=== PATIENT | female | born 1930 ===

== ENCOUNTER 2019-02-03 16:11 | Observation (INO) | payer MEDICARE, BC ==
[~2019-02-03] VITALS: Ht 157.5 cm; Wt 58.2 kg
--- NOTE | 2019-02-03 16:15 | ERD ---
ER Documentation Chief Complaint Chief Complaint Shortness of breath HPI The patient is a 88-year-old female, presenting to the ER from [facility] for right lower extremity chronic wound care because of acute dyspnea she laid down for the ultrasound of the right lower extremity. According to the nurse from [facility], ultrasound was negative for DVT. He was then transferred to the ER for further evaluation. She has not been sick in the last couple days, denies fever, chills, cough, neck pain, chest pain, abdominal pain, vomiting, dysuria, diarrhea. She does not smoke nor drink Past medical history: Hypertension, scleroderma, CAD Past surgical history: Back, colon surgery due to colon cancer, treated with chemotherapy and radiation therapy ROS All systems reviewed and are negative except as per history of present illness. Medications Home Meds Reported Medications Gabapentin* (Gabapentin*) 300 Mg Capsule, 300 MG PO QHS, #60 CAP 02/03/19 Esomeprazole Mag Trihydrate (Nexium) 20 Mg Capsule.dr, 20 MG PO BID, #30 CAP 02/03/19 Amlodipine Besylate* (Amlodipine Besylate*) 10 Mg Tablet, 10 MG PO DAILY, #30 TAB 02/03/19 Quetiapine Fumarate* (Quetiapine Fumarate*) 25 Mg Tablet, 50 MG PO HS, TAB 02/03/19 Clopidogrel Bisulfate* (Clopidogrel Bisulfate*) 75 Mg Tablet, 75 MG PO DAILY, #30 TAB 02/03/19 Losartan Potassium* (Losartan Potassium*) 50 Mg Tablet, 50 MG PO DAILY, TAB 02/03/19 Allergies Allergies: Coded Allergies: No Known Allergy (Unverified , 02/03/19) Physical Exam Vitals Vital Signs Date Temp Pulse Resp B/P (MAP) Pulse Ox O2 O2 Flow FiO2 Time Delivery Rate 02/03/19 94 20 131/62 100 Nasal 20:41 (85) Cannula 02/03/19 3 17:30 02/03/19 3.0 17:30 02/03/19 3.0 17:20 02/03/19 98.2 133 30 152/76 100 16:30 (101) Physical Exam Const: No acute distress. Head: Atraumatic. Eyes: Normal Conjunctiva. ENT: Normal External Ears, Nose and Mouth. Neck: Full range of motion. No meningismus. Resp: Bibasilar crackle Cardio: Regular tachycardic Abd: Soft, non distended, normal bowel sounds, non tender. Skin: No petechiae or rashes. Back: No midline or flank tenderness. Ext: Right lower extremity is dressed Neur: Awake and alert. No focal deficit Psych: Very anxious Result Diagram: 02/03/19 1630 02/03/19 1630 Results 24 hrs Laboratory Tests Test 02/03/19 16:30 02/03/19 16:32 02/03/19 16:43 02/03/19 17:13 White Blood 7.7 10^3/ul Count Red Blood Count 3.46 10^6/ul Hemoglobin 10.1 g/dl Hematocrit 32.7 % Mean 94.5 fl Corpuscular Volume Mean 29.2 pg Corpuscular Hemoglobin Mean 30.9 g/dl Corpuscular Hemoglobin Conc ent Red Cell 15.2 % Distribution Width Platelet Count 299 10^3/UL Mean Platelet 10.7 fl Volume Immature 0.400 % Granulocytes % Neutrophils % 54.4 % Lymphocytes % 35.3 % Monocytes % 4.7 % Eosinophils % 4.2 % Basophils % 1.0 % Nucleated Red 0.0 /100WBC Blood Cells % Immature 0.030 10^3/ul Granulocytes # Neutrophils # 4.2 10^3/ul Lymphocytes # 2.7 10^3/ul Monocytes # 0.4 10^3/ul Eosinophils # 0.3 10^3/ul Basophils # 0.1 10^3/ul Nucleated Red 0.0 10^3/ul Blood Cells # Prothrombin 12.5 Sec Time Prothrombin 1.0 Time Ratio INR 0.92 International Normalized Rati o Activated 29.1 Sec Partial Thrombo plast Time Sodium Level 143 mmol/L Potassium Level 4.0 mmol/L Chloride Level 106 mmol/L Carbon Dioxide 24 mmol/L Level Anion Gap 13 Blood Urea 21 mg/dl Nitrogen Creatinine 1.24 mg/dl Est Glomerular mL/min Filtrat Rate mL/min Glucose Level 122 mg/dl Calcium Level 8.5 mg/dl Total Bilirubin 0.5 mg/dl Direct 0.00 mg/dl Bilirubin Indirect 0.5 mg/dl Bilirubin Aspartate Amino 17 IU/L Transf (AST/SGO T) Alanine < 6 IU/L Aminotransferas e (ALT/SGPT) Alkaline 85 IU/L Phosphatase Troponin I 0.084 ng/ml B-Type 7530 PG/ML Natriuretic Peptide Total Protein 7.5 g/dl Albumin 4.0 g/dl Globulin 3.50 g/dl Albumin/Globuli 1.14 n Ratio Blood Gas Blood arterial Specimen Source Arterial Blood 02/03/2019 5:10: Date Drawn 37 PM Arterial Blood 7.407 pH (Temp corrected ) Arterial Blood 35.4 mmhg pCO2 (Temp correct) Arterial Blood 105.4 mmHG pO2 (Temp corrected ) Arterial Blood 21.8 mmol/L HCO3 Arterial Blood -2.4 mmol/L Base Excess Arterial Blood 97.7 mmHG Oxygen Saturati on Estuardo Test ACCEPTAB Arterial Blood Right Radial Gas Puncture Site Arterial 0.3 % Blood Carboxyhe moglobin Arterial Blood 0.2 % Methemoglobin Blood Gas A-a 66.9 mmHg O2 Differential Oxyhemoglobin 97.2 % Percent Blood Gas 37.0 C Temperature Blood Gas NASAL CANNULA Modality FiO2 30.0 % Blood Gas MDA Notified Whom Blood Gas 02/03/2019 5:17: Notified Time 06 PM POC Venous 1.2 mmol/L Lactate Urine Color YELLOW Urine Clarity SLIGHTLY CLOUDY Urine pH 5.0 Urine Specific 1.010 [place] Urine Ketones NEGATIVE mg/dL Urine Nitrite NEGATIVE mg/dL Urine Bilirubin NEGATIVE mg/dL Urine NEGATIVE mg/dL Urobilinogen Urine Leukocyte 2+ Rosalva/ul Esterase Urine 4 /HPF Microscopic RBC Urine 15 /HPF Microscopic WBC Urine Squamous FEW /HPF Epithelial Cell s Urine Bacteria MANY /HPF Urine NEGATIVE mg/dL Hemoglobin Urine Glucose NEGATIVE mg/dL Urine Total NEGATIVE mg/dl Protein Test 02/03/19 18:27 Lactic Acid 1.1 mmol/L Level Current Medications Medications Dose Sig/Dillon Start Time Status Last (Trade) Ordered Route PRN Stop Time Admin Dose Reason Admin Furosemide 20 mg ONCE ONCE 02/03/19 DC 02/03/19 (Lasix) IV 18:00 19:17 02/03/19 18:01 IV Flush 3 ml PER 02/03/19 (NS 3 ml) PROTOCOL IV 19:30 Ondansetron 4 mg Q6H PRN 02/03/19 HCl (Zofran IV 19:30 Inj) NAUSEA/VOMITI NG 650 mg Q6H PRN 02/03/19 Acetaminophen PO .PAIN 1-3 19:30 (Tylenol OR TEMP Tab) 1 tab Q6H PRN 02/03/19 Acetaminophen PO .MOD PAIN 19:30 / 4-6 Hydrocodone Bitart (Paulina (5/325)) Morphine 2 mg Q4H PRN 02/03/19 Sulfate IV .SEVERE 19:30 (morphine) PAIN 7-10 Heparin 5,000 unit Q12 SC 02/03/19 Sodium 22:00 (Porcine) (Heparin (5000 Units/1ml)) Amlodipine 10 mg DAILY PO 02/04/19 Besylate 09:00 (Norvasc) Clopidogrel 75 mg DAILY PO 02/04/19 Bisulfate 09:00 (plaVIX) Gabapentin 300 mg QHS PO 02/03/19 (Neurontin) 22:00 Losartan 50 mg DAILY PO 02/04/19 Potassium 09:00 (Cozaar) Quetiapine 50 mg HS PO 02/03/19 Fumarate 22:00 (Seroquel) 40 mg 02/04/19 Pantoprazole BID@0600,1800 06:00 (Protonix PO Tab) Furosemide 20 mg BID 02/04/19 (Lasix) DIURETICS 06:00 IV Ceftriaxone 50 ml @ Q24H IVPB 02/03/19 Sodium 100 mls/hr 23:00 Procedures/[place] [id number] Radiology Main Line: [phone] DIAGNOSTIC IMAGING REPORT Patient: MARGARITA GLASS : 1930 Age: 88 Sex: F MR #: [id number] DOS: 02/03/19 1630 Ordering MD: LAURI PARKS MD Location: E/R Room/Bed: PROCEDURE: XR 1 view Chest. CLINICAL INDICATION: Chest pain. TECHNIQUE: Portable Single frontal view of the chest was obtained. COMPARISON: DR TREVINO CHEST 02/03/2019 FINDINGS: The heart is normal in size. There are moderate aortic calcifications. Mild to moderate pulmonary vascular congestion. There is no focal consolidation. There is no pleural effusion. No pneumothorax is identified. The osseous structures are intact. There is a metallic screw projecting over the right infrahilar region. IMPRESSION: No significant change. Mild to moderate pulmonary vascular congestion. Aortic calcifications. Metallic screw projecting over the right infrahilar region. This may represent a small foreign body versus overlying the patient. CT of the chest may be performed as clinically warranted. Further findings as detailed above. RPTAT: PP .Dalton Stevenson MD, Date Time Electronically viewed and signed by .Dalton Stevenson MD, on 02/03/2019 17:33 .F/ CC: LAURI PARKS MD [phone] EKG: Read by emergency physician Rate/Rhythm: Sinus tachycardia 114 beats/min QRS, ST, T-waves: No ST elevation, no T inversion, PAC, LBBB Impression: Abnormal EKG UA Pending MEDICAL MAKING DECISION: The patient is a 88-year-old female, presenting with acute respiratory failure, acute new onset CHF, acute renal insufficiency, anemia. She was treated with Lasix 20 mg IV for acute CHF with good response. Her O2 saturation was 85% on room air however she responded to supplemental oxygen The differential diagnoses considered include but are not limited to asthma, COPD, pneumonia, pulmonary embolus, pleural effusion, congestive heart failure. Critical Care: Time: 35 minutes excluding all billable procedures. Treatments/Evaluations: Close monitoring and treatment of unstable vital signs, cardiorespiratory, and neurologic status, while maintaining tight balance of fluid, respiratory, and cardiac interventions. Departure Diagnosis: Primary Impression: Respiratory failure, acute Additional Impressions: New onset of congestive heart failure Renal insufficiency Anemia Condition: Stable Comments I discussed the findings with the patient. I discussed the patient with Dr Gar at 6 PM, who was made aware of the lab, the treatment, the patient condition. The patient is admitted to [facility] Disclaimer: Inadvertent spelling and grammatical errors are likely due to EHR/dictation software use and do not reflect on the overall quality of patient care. Also, please note that the electronic time recorded on this note does not necessarily reflect the actual time of the patient encounter. LAURI PARKS MD Feb 03, 2019 16:15
[2019-02-03] MEDS ORDERED: LOSA50TA14 PO (17:22)
[2019-02-03] MEDS ORDERED: QUET25TA33 PO (17:23)
[2019-02-03] MEDS ORDERED: CLOP75TA19 PO (17:23)
[2019-02-03] MEDS ORDERED: AMLO-147 PO (17:24)
[2019-02-03] MEDS ORDERED: GABA300C16 PO (17:25)
[2019-02-03] MEDS ORDERED: ESOM20CA PO (17:25)
[2019-02-03] MEDS ORDERED: FUROSEMIDE 20 MG INJ IV ONE (18:00)
--- NOTE | 2019-02-03 19:06 | HP ---
Date/Time of Note Date/Time of Note DATE: 02/03/19 TIME: 19:01 Assessment/Plan VTE Prophylaxis Pharmacological prophylaxis: heparin Lines/Catheters IV Catheter Type (from Nrs): Saline Lock Assessment/Plan Hospital Course 1. CHF exacerbation Patient with reported history of CHF but not on diuretic therapy Lasix IV 2D echo 2. Lewy body dementia Patient does sundown 3. Peripheral vascular disease status post multiple angiographies of the right lower extremity Outpatient follow-up with vascular surgery 4. Acute versus chronic kidney disease Monitor 5. Normocytic anemia likely of chronic disease No reports of bleed Monitor Prophylaxis: Heparin Result Diagram: 02/03/19 1630 02/03/19 1630 Results 24hrs Laboratory Tests Test 02/03/19 16:30 02/03/19 16:32 02/03/19 16:43 02/03/19 17:13 White Blood 7.7 Count Red Blood Count 3.46 L Hemoglobin 10.1 L Hematocrit 32.7 L Mean Corpuscular 94.5 Volume Mean Corpuscular 29.2 Hemoglobin Mean Corpuscular 30.9 L Hemoglobin Sheryl nt Red Cell 15.2 H Distribution Width Platelet Count 299 Mean Platelet 10.7 H Volume Immature 0.400 Granulocytes % Neutrophils % 54.4 Lymphocytes % 35.3 Monocytes % 4.7 Eosinophils % 4.2 Basophils % 1.0 Nucleated Red 0.0 Blood Cells % Immature 0.030 Granulocytes # Neutrophils # 4.2 Lymphocytes # 2.7 Monocytes # 0.4 Eosinophils # 0.3 Basophils # 0.1 Nucleated Red 0.0 Blood Cells # Prothrombin Time 12.5 Prothrombin Time 1.0 Ratio INR 0.92 International Normalized Ratio Activated 29.1 Partial Thrombop last Time Sodium Level 143 Potassium Level 4.0 Chloride Level 106 Carbon Dioxide 24 Level Anion Gap 13 Blood Urea 21 H Nitrogen Creatinine 1.24 H Est Glomerular Filtrat Rate mL/min Glucose Level 122 Calcium Level 8.5 Total Bilirubin 0.5 Direct Bilirubin 0.00 Indirect 0.5 Bilirubin Aspartate Amino 17 Transf (AST/SGOT ) Alanine < 6 L Aminotransferase (ALT/SGPT) Alkaline 85 Phosphatase Troponin I 0.084 B-Type 7530 H Natriuretic Peptide Total Protein 7.5 Albumin 4.0 Globulin 3.50 H Albumin/Globulin 1.14 Ratio Blood Gas Blood arterial Specimen Source Arterial Blood 02/03/2019 5:10: Date Drawn 37 PM Arterial Blood 7.407 pH (Temp corrected) Arterial Blood 35.4 pCO2 (Temp correct) Arterial Blood 105.4 H pO2 (Temp corrected) Arterial Blood 21.8 L HCO3 Arterial Blood -2.4 Base Excess Arterial Blood 97.7 Oxygen Saturatio n Estuardo Test ACCEPTAB Arterial Blood Right Radial Gas Puncture Site Arterial 0.3 Blood Carboxyhem oglobin Arterial Blood 0.2 Methemoglobin Blood Gas A-a O2 66.9 H Differential Oxyhemoglobin 97.2 Percent Blood Gas 37.0 Temperature Blood Gas NASAL CANNULA Modality FiO2 30.0 Blood Gas MDA Notified Whom Blood Gas 02/03/2019 5:17: Notified Time 06 PM POC Venous 1.2 Lactate Urine Color YELLOW Urine Clarity SLIGHTLY CLOUDY A Urine pH 5.0 Urine Specific 1.010 [place] Urine Ketones NEGATIVE Urine Nitrite NEGATIVE Urine Bilirubin NEGATIVE Urine NEGATIVE Urobilinogen Urine Leukocyte 2+ H Esterase Urine 4 Microscopic RBC Urine 15 H Microscopic WBC Urine Squamous FEW Epithelial Cells Urine Bacteria MANY A Urine Hemoglobin NEGATIVE Urine Glucose NEGATIVE Urine Total NEGATIVE Protein Test 02/03/19 18:27 Lactic Acid 1.1 Level HPI/ROS Admit Date/Time Admit Date/Time February 03, 2019 Hx of Present Illness Patient is an 88-year-old female with a history of Lewy body dementia, hyperten ambar, CHF, peripheral vascular disease status post multiple angios on the right lower extremity. Patient was at [facility] for a scheduled ultrasound when she became short of breath and was noted to have crackles. Patient was sent to the ER where chest x-ray showed pulmonary edema and elevated BNP. History is obtained from daughter who is bedside, patient denies any chest pain, fever or chills. ROS Constitutional: no complaints, improved Eyes: no complaints ENT: no complaints Respiratory: no complaints Cardiovascular: no complaints Gastrointestinal: no complaints Genitourinary: no complaints Musculoskeletal: no complaints Skin: no complaints Neurologic: no complaints Endocrine: no complaints Lymphatic: no complaints Psychological: no complaints, nl mood/affect Immunologic: no complaints PMH/Family/Social Past Medical History As per HPI Coded Allergies: No Known Allergy (Unverified , 02/03/19) Family History Significant Family History: no pertinent family hx Social History Alcohol Use: none Smoking Status: Never smoker Drug Use: none Exam/Review of Systems Vital Signs Vitals Vital Signs Date Temp Pulse Resp B/P (MAP) Pulse Ox O2 O2 Flow FiO2 Time Delivery Rate 02/03/19 3 17:30 02/03/19 98.2 133 30 152/76 100 16:30 (101) Exam Constitutional: alert Psych: confusion Respiratory: crackles/rales Cardiovascular: regular rate and rhythm Gastrointestinal: soft; No distended Musculoskeletal: nl extremities to inspection EBONIE ALEGRE Feb 03, 2019 19:06
[2019-02-03] MEDS ORDERED: ACETAMINOPHEN 325 MG TAB PO PRN (19:30)
[2019-02-03] MEDS ORDERED: HYDROCODONE/APAP (5/325) TAB PO PRN (19:30)
[2019-02-03] MEDS ORDERED: NACL 0.9% 3 ML SYG IV SCH (19:30)
[2019-02-03] MEDS ORDERED: morphine 2 MG INJ IV PRN (19:30)
[2019-02-03] MEDS ORDERED: ONDANSETRON 4 MG INJ IV PRN (19:30)
[2019-02-03] MEDS ORDERED: QUETIAPINE 25 MG TAB PO SCH (22:00)
[2019-02-03] MEDS ORDERED: GABAPENTIN 300 MG CAP PO SCH (22:00)
[2019-02-03] MEDS ORDERED: CEFTRIAXONE 1 GM/50 ML (PMX) 50 ML IVPB SCH (23:00)
[2019-02-04] VITALS (10 sets, daily range): BP systolic 123–145; BP diastolic 54–69; PULSE 74–100; RESP 18–19; Ht 157.5 cm; Wt 58.2 kg
[2019-02-04] MEDS: HEPARIN 5,000 UNIT/1 ML VIAL SC SCH ×2 (00:43→08:34)
[2019-02-04] MEDS ORDERED: FUROSEMIDE 20 MG INJ IV SCH (06:00)
[2019-02-04] MEDS ORDERED: PANTOPRAZOLE (EC) 40 MG TAB PO SCH (06:00)
[2019-02-04] MEDS ORDERED: CLOPIDOGREL 75 MG TAB PO SCH (09:00)
[2019-02-04] MEDS ORDERED: AMLODIPINE 10 MG TAB PO SCH (09:00)
[2019-02-04] MEDS ORDERED: LOSARTAN 50 MG TAB PO SCH (09:00)
[2019-02-04] MEDS ORDERED: FURO20TA3 PO (14:14)
--- NOTE | 2019-02-04 14:15 | PDOCDIS ---
Discharge Instructions CONDITION [id number] Patient Condition: [id number] Good HOME CARE INSTRUCTIONS: [id number] Diet Instructions: [id number] Regular ACTIVITY: [id number] Activity Restrictions: [id number] Slowly Increase Activity FOLLOW UP/APPOINTMENTS Follow-up Plan FOLLOW UP WITH YOUR PCP IN 1-2 WEEKS EBONIE ALEGRE Feb 04, 2019 14:15
--- NOTE | 2019-02-04 19:57 | RADRPT ---
Echocardiogram Report Patient Name: MARGARITA GLASSPatient ID: [id number] : 1930 (88y 10m)Study Date: 02/04/2019 1:27:46 PM Gender: FAccession #: [id number] Tech: MonieChanelle Chow [facility] Location: [facility] Ref.Physician: EBONIE ALEGRE Height(Cm): BSA: Weight(Kg): Quality: AdequateOrder Physician: EBONIE ALEGRE Account #: Procedures: Echocardiographic Report: Transthoracic echocardiogram with complete 2D, M-Mode, and doppler examination. Indications: Congestive Heart Failure. Measurements: 2D/M Mode Doppler Measurement Value Normal Range Measurement Value Normal Range LVIDd 2D 5.0 [ 3.8 - 5.2 ] cm STANISLAV VTI 0.8 [ 2.0 - 4.0 ] cm2 LVIDs 2D 4.4 [ 2.2 - 3.5 ] cm AV Mean Pedro Luis 2.5 [ 70.0 - 90.0 ] cm/sec LVPWd 2D 1.1 [ 0.6 - 0.9 ] cm AV Mean PG 26.0 [ 2.0 - 4.0 ] mmHg IVSd 2D 1.1 [ 0.6 - 0.9 ] cm AV VTI 77.3 cm AoR Diam 2D 3.0 [ 2.3 - 3.1 ] cm LVOT Mean Pedro Luis 0.5 [ 60.0 - 80.0 ] cm/sec EDV 2D 118.0 [ 46.0 - 106.0 ] ml LVOT Mean PG 1.0 [ 1.0 - 3.0 ] mmHg ESV 2D 88.2 [ 14.0 - 42.0 ] ml LVOT Peak Pedro Luis 0.7 [ 70.0 - 110.0 ] cm/sec EF 2D 25.3 [ 54.0 - 74.0 ] percent LVOT Peak PG 2.0 [ 2.0 - 6.0 ] mmHg LA Dimen 2D 3.9 [ 2.7 - 3.8 ] cm LVOT VTI 19.9 [ 20.0 - 30.0 ] cm LVOT Diam 2.0 [ 2.1 - 2.5 ] cm MV E Peak Pedro Luis 0.6 [ 60.0 - 130.0 ] cm/sec MV A Peak Pedro Luis 1.1 [ 100.0 - 120.0 ] cm/sec MV E/A 0.6 [ 0.8 - 1.5 ] ratio MV Decel Time 197 [ 104 - 258 ] msec Lat E` Pedro Luis 0.0 [ 10.0 - 15.0 ] cm/sec Lateral E/E` 12.4 [ 1.0 - 2.0 ] ratio Med E` Pedro Luis 0.0 cm/sec MV E/A 0.6 [ 0.8 - 1.5 ] ratio TR Peak Pedro Luis 2.7 [ 100.0 - 280.0 ] cm/sec TR Peak PG 28.0 mmHg RVSP 31.0 [ 10.0 - 36.0 ] mmHg RA Pressure 3.0 mmHg Findings: Left Ventricle: Normal left ventricular cavity size. Mild concentric left ventricular hypertrophy. Severe global left ventricular systolic dysfunction. Ejection fraction is visually estimated at 25 %. Tissue Doppler/Mitral Doppler indices are consistent with impaired relaxation (Stage I diastolic dysfunction). Right Ventricle: Normal right ventricular size. Normal right ventricular systolic function. Left Atrium: The left atrium is normal in size. Right Atrium: The right atrium is normal in size. Mitral Valve: Mitral valve leaflets appear mildly thickened. Mild mitral annular calcification. Mild mitral valve regurgitation. Aortic Valve: Severe aortic stenosis. Aortic valve Max velocity 3.21 m/sec. Max PG 41.00 mmHg. Mean PG 26.00 mmHg. Aortic cusps appear moderately calcified. Mild aortic valve regurgitation. Tricuspid Valve: Normal appearance of the tricuspid valve. The estimated Peak RVSP is 31 mmHg. There is mild tricuspid regurgitation. Pulmonic Valve: Pulmonic valve not well visualized. There is trace pulmonic regurgitation. Pericardium: Normal pericardium with no significant pericardial effusion. Aorta: Normal aortic root. IVC: Normal size and normal respiratory collapse consistent with normal right atrial pressure. Conclusions: Mild concentric left ventricular hypertrophy with severely reduced left ventricular systolic function. Grade 1 diastolic dysfunction. Mitral annular calcification and mild regurgitation. Severe calcific aortic stenosis and mild aortic regurgitation. Mild tricuspid regurgitation and borderline pulmonary hypertension. Trace pulmonic regurgitation. Electronically Signed By: Jacqueline Russell 2019-02-04 19:56:38 PDT
--- NOTE | 2019-02-06 17:23 | DS ---
Date/Time of Note Date/Time of Note DATE: 02/06/19 TIME: 17:06 Discharge Summary Admission/Discharge Info Admit Date/Time Feb 03, 2019 at 19:41 Discharge Date/Time Feb 04, 2019 at 17:30 Discharge Diagnosis 1. Acute on chronic systolic heart failure exacerbation Patient with reported history of CHF but not on diuretic therapy Echo does show an EF of 25% Status post Lasix IV, DC with Lasix p.o. Follow-up with [facility] as outpatient 2. Lewy body dementia Patient does sundown 3. Peripheral vascular disease status post multiple angiographies of the right lower extremity Outpatient follow-up with vascular surgery 4. Acute versus chronic kidney disease Monitor 5. Normocytic anemia likely of chronic disease No reports of bleed Patient Condition: Good Hospital Course Patient is an 88-year-old female with a history of Lewy body dementia, hyper tension, CHF, peripheral vascular disease status post multiple angios on the right lower extremity. Patient was at [facility] for a scheduled ultrasound when she became short of breath and was noted to have crackles. Patient was sent to the ER where chest x-ray showed pulmonary edema and elevated BNP. Patient was unable to provide history due to her dementia, according daughter patient does have history of CHF but not on Lasix therapy. Patient was diuresed with Lasix and echo did show an EF of 25%. Patient's restore status did improve and patient was stable for DC, patient was prescribed Lasix and was to follow-up with her [facility] as an outpatient. On the day of discharge patient's vitals, labs and physical exam are stable. Home Meds Active Scripts Furosemide* (Furosemide*) 20 Mg Tablet, 20 MG PO DAILY for 20 Days, #20 TAB Prov:EBONIE ALEGRE 02/04/19 Reported Medications Gabapentin* (Gabapentin*) 300 Mg Capsule, 300 MG PO QHS, #60 CAP 02/03/19 Esomeprazole Mag Trihydrate (Nexium) 20 Mg Capsule.dr, 20 MG PO BID, #30 CAP 02/03/19 Amlodipine Besylate* (Amlodipine Besylate*) 10 Mg Tablet, 10 MG PO DAILY, #30 TAB 02/03/19 Quetiapine Fumarate* (Quetiapine Fumarate*) 25 Mg Tablet, 50 MG PO HS, TAB 02/03/19 Clopidogrel Bisulfate* (Clopidogrel Bisulfate*) 75 Mg Tablet, 75 MG PO DAILY, #30 TAB 02/03/19 Losartan Potassium* (Losartan Potassium*) 50 Mg Tablet, 50 MG PO DAILY, TAB 02/03/19 Follow-up Plan FOLLOW UP WITH YOUR PCP IN 1-2 WEEKS Primary Care Provider Not On Staff Doctor Time spent on discharge: > 30 minutes EBONIE ALEGRE Feb 06, 2019 17:23
== END 2019-02-04 17:30 | disposition home or self-care (01) ==
LOC: E/R 16:11 → UNDOADMIN 18:31 → 6WM 18:31 → INTOOBSV 19:41 → 6WM 19:41
PROVIDERS: ADMIT Internal Medicine; ATTEND Internal Medicine
DX: I11.0 Hypertensive heart disease with heart failure (principal); I50.23 Acute on chronic systolic (congestive) heart failure; I25.10 Atherosclerotic heart disease of native coronary artery without angina pectoris; G31.83 Neurocognitive disorder with Lewy bodies; F02.80 Dementia in other diseases classified elsewhere, unspecified severity, without behavioral disturbance, psychotic disturbance, mood disturbance, and anxiety; I73.9 Peripheral vascular disease, unspecified; D64.9 Anemia, unspecified; N28.9 Disorder of kidney and ureter, unspecified
CPT/HCPCS: 36600; 71045; 80048; 80053; 81001; 82803; 83605; 83735; 83880; 84100; 84484; 85025; 85610; 85730; 87040; 87086; 93005; 93306; 96374; 99285; G0378; J0696; J1644; J1940